=== PATIENT | female | born 1950 | race Caucasian/White ===

== ENCOUNTER 2017-06-18 20:00 | Inpatient (IN) | payer OTHER ==
[~2017-06-18] VITALS: Ht 152.4 cm; Wt 72.6 kg
[2017-06-18 20:52] VITALS: BP 174/78
[2017-06-18] MEDS ORDERED: cloNIDine 0.1 MG TAB PO PRN (21:50)
[2017-06-18] MEDS ORDERED: HYDROcodone/APAP 5/325 MG 1 TAB TAB PO PRN (21:50)
[2017-06-18] MEDS ORDERED: ONDANSETRON 4 MG/2 ML VIAL IVP PRN (21:50)
[2017-06-18] MEDS ORDERED: DEXTROSE 50% 50 ML SYR IVP PRN (21:50)
[2017-06-18] MEDS ORDERED: ACETAMINOPHEN 325 MG TAB PO PRN (21:50)
[2017-06-18] MEDS: DEXT 5% / NACL 0.45% 1,000 ML IV SCH (23:27)
[2017-06-18] MEDS: METOPROLOL 25 MG TAB PO SCH (23:27)
[2017-06-18] MEDS: MORPHINE SULFATE 2 MG/ML SYR IVP PRN (23:28)
[2017-06-18] MEDS: BLOOD GLUCOSE MONITORING 1 DEV DEV FS SCH (23:28)
[2017-06-18] MEDS: INSULIN LISPRO SLIDING SCALE 100 UNITS/ML VIAL SUBQ PRN (23:29)
[2017-06-18] MEDS ORDERED: METOPROLOL 25 MG TAB ONE (23:31)
[2017-06-18] MEDS ORDERED: LEVOFLOXACIN 500 MG/D5W PREMIX 100 ML IV SCH (23:45)
[2017-06-19] VITALS: BP 179/83
[2017-06-19] MEDS: metroNIDAZOLE 500 MG/NS PREMIX 100 ML IV SCH ×4 (00:01→20:41)
[2017-06-19] MEDS: OXYBUTYNIN 5 MG TAB PO SCH ×3 (00:05→20:47)
[2017-06-19] MEDS ORDERED: metroNIDAZOLE 500 MG/NS PREMIX 100 ML IV ONE (00:08)
[2017-06-19] MEDS ORDERED: LEVOFLOXACIN 500 MG/D5W PREMIX 100 ML IV ONE (00:08)
[2017-06-19] MEDS ORDERED: PNEUMOCOCCAL VACCINE 23 MCG/0.5 ML VIAL IMVAC PRN (01:00)
[2017-06-19 04:00] VITALS: BP 131/67
[2017-06-19] MEDS: BLOOD GLUCOSE MONITORING 1 DEV DEV FS SCH ×4 (05:12→18:23)
[2017-06-19 06:14] LABS: HEMOGLOBIN 11.9 g/dL (12.0-16.0); MEAN CORPUSCULAR HEMOGLOBIN 32 pg (27-31); MEAN CORPUSCULAR HGB CONC 34 g/dL (33-37); MEAN CORPUSCULAR VOLUME 95 fL (80-94); PLATELET COUNT (AUTO) 253 K/uL (140-450); RED BLOOD CELL COUNT(AUTO) 3.68 MIL/uL (4.20-5.40); RED CELL DISTRIBUTION WIDTH 12.9 % (11.6-13.7)
[2017-06-19 06:18] LABS: ANION GAP 11.9 (8-16); CARBON DIOXIDE 26.5 mmol/L (21-32); CREATININE 0.6 mg/dL (0.6-1.3); POTASSIUM 3.4 mmol/L (3.5-5.1)
[2017-06-19] MEDS: MORPHINE SULFATE 2 MG/ML SYR IVP PRN ×2 (06:32→20:43)
[2017-06-19 07:11] LABS: EOSINOPHILS % (MANUAL) 1 % (0-4); LYMPHOCYTES % (MANUAL) 9 % (20-46); MONOCYTES % (MANUAL) 6 % (5-12)
[2017-06-19 07:51] VITALS: BP 128/80
[2017-06-19] MEDS ORDERED: POTASSIUM CHLORIDE 10 MEQ TABER PO SCH (08:20)
[2017-06-19] MEDS: LORATADINE 10 MG TAB PO SCH (08:40)
[2017-06-19] MEDS: METOPROLOL 25 MG TAB PO SCH ×2 (08:41→20:47)
[2017-06-19] MEDS: LISINOPRIL 20 MG TAB PO SCH (08:41)
[2017-06-19 12:00] VITALS: BP 123/58
[2017-06-19] MEDS: DEXT 5% / NACL 0.45% 1,000 ML IV SCH (13:27)
[2017-06-19 16:00] VITALS: BP 142/70
[2017-06-19 20:00] VITALS: BP 142/67
[2017-06-19] MEDS: POLYETHYLENE GLYCOL 17 GM/PKT PO SCH (20:48)
[2017-06-20] VITALS: BP 137/76
[2017-06-20] MEDS: LEVOFLOXACIN 250 MG/D5 PREMIX 50 ML IV SCH (01:20)
[2017-06-20] MEDS: DEXT 5% / NACL 0.45% 1,000 ML IV SCH ×3 (01:21→22:44)
[2017-06-20 04:00] VITALS: BP 139/65
[2017-06-20] MEDS: metroNIDAZOLE 500 MG/NS PREMIX 100 ML IV SCH ×3 (05:19→20:19)
[2017-06-20 06:13] LABS: BASOPHILS # (AUTO) 0.1 K/uL (0.00-0.22); BASOPHILS % (AUTO) 0.6 % (0.0-2.0); EOSINOPHILS # (AUTO) 0.3 K/uL (0-0.4); EOSINOPHILS % (AUTO) 1.8 % (0.0-4.0); HEMATOCRIT 34.4 % (36-48); HEMOGLOBIN 11.6 g/dL (12.0-16.0); LYMPHOCYTES # (AUTO) 2.2 K/uL (2.5-16.5); LYMPHOCYTES % (AUTO) 15.4 % (20.5-51.1); MEAN CORPUSCULAR HEMOGLOBIN 32 pg (27-31); MEAN CORPUSCULAR HGB CONC 34 g/dL (33-37); MEAN CORPUSCULAR VOLUME 95 fL (80-94); MONOCYTES # (AUTO) 0.9 K/uL (0.8-1.0); MONOCYTES % (AUTO) 6.5 % (1.7-9.3); NEUTROPHILS # (AUTO) 10.6 K/uL (1.8-7.7); NEUTROPHILS % (AUTO) 75.7 % (42.2-75.2); PLATELET COUNT (AUTO) 252 K/uL (140-450); RED BLOOD CELL COUNT(AUTO) 3.63 MIL/uL (4.20-5.40); WHITE BLOOD COUNT (AUTO) 14.1 K/uL (4.8-10.8)
[2017-06-20] MEDS: BLOOD GLUCOSE MONITORING 1 DEV DEV FS SCH ×4 (06:55→17:39)
[2017-06-20 06:56] LABS: ANION GAP 9.7 (8-16); CARBON DIOXIDE 27.1 mmol/L (21-32); CREATININE 0.5 mg/dL (0.6-1.3); POTASSIUM 3.8 mmol/L (3.5-5.1); TOTAL BILIRUBIN 0.3 mg/dL (0.0-1.0)
[2017-06-20 08:35] VITALS: BP 131/67
[2017-06-20] MEDS: METOPROLOL 25 MG TAB PO SCH ×2 (08:56→20:18)
[2017-06-20] MEDS: OXYBUTYNIN 5 MG TAB PO SCH ×2 (08:56→20:18)
[2017-06-20] MEDS: LISINOPRIL 20 MG TAB PO SCH (08:56)
[2017-06-20] MEDS: POLYETHYLENE GLYCOL 17 GM/PKT PO SCH ×2 (08:57→20:18)
[2017-06-20] MEDS ORDERED: metroNIDAZOLE 250 MG TAB PO SCH (09:00)
[2017-06-20] MEDS: LORATADINE 10 MG TAB PO SCH (09:00)
[2017-06-20] MEDS: ENOXAPARIN 40 MG/0.4 ML SYR SUBQ SCH (09:05)
[2017-06-20 12:00] VITALS: BP 138/74
[2017-06-20] MEDS: INSULIN LISPRO SLIDING SCALE 100 UNITS/ML VIAL SUBQ PRN (12:51)
[2017-06-20 16:00] VITALS: BP 144/66
[2017-06-20] MEDS ORDERED: BOWEL EVACUANT DRINK 4,000 ML PDS PO SCH (19:00)
[2017-06-20 20:00] VITALS: BP 146/73
[2017-06-21] VITALS: BP 147/73
[2017-06-21] MEDS: LEVOFLOXACIN 250 MG/D5 PREMIX 50 ML IV SCH (00:10)
[2017-06-21] MEDS: BLOOD GLUCOSE MONITORING 1 DEV DEV FS SCH ×3 (00:35→11:39)
[2017-06-21] MEDS: metroNIDAZOLE 500 MG/NS PREMIX 100 ML IV SCH ×2 (04:59→12:04)
[2017-06-21 06:31] LABS: BASOPHILS # (AUTO) 0.2 K/uL (0.00-0.22); BASOPHILS % (AUTO) 2.3 % (0.0-2.0); EOSINOPHILS # (AUTO) 0.3 K/uL (0-0.4); EOSINOPHILS % (AUTO) 2.5 % (0.0-4.0); HEMATOCRIT 32.8 % (36-48); LYMPHOCYTES # (AUTO) 2.4 K/uL (2.5-16.5); LYMPHOCYTES % (AUTO) 23.6 % (20.5-51.1); MEAN CORPUSCULAR HEMOGLOBIN 32 pg (27-31); MEAN CORPUSCULAR HGB CONC 33 g/dL (33-37); MEAN CORPUSCULAR VOLUME 96 fL (80-94); MONOCYTES # (AUTO) 0.8 K/uL (0.8-1.0); MONOCYTES % (AUTO) 7.8 % (1.7-9.3); NEUTROPHILS # (AUTO) 6.6 K/uL (1.8-7.7); NEUTROPHILS % (AUTO) 63.8 % (42.2-75.2); PLATELET COUNT (AUTO) 290 K/uL (140-450); RED BLOOD CELL COUNT(AUTO) 3.42 MIL/uL (4.20-5.40); RED CELL DISTRIBUTION WIDTH 12.8 % (11.6-13.7); WHITE BLOOD COUNT (AUTO) 10.3 K/uL (4.8-10.8)
[2017-06-21 07:52] VITALS: BP 125/69
[2017-06-21] MEDS: ENOXAPARIN 40 MG/0.4 ML SYR SUBQ SCH (08:47)
[2017-06-21] MEDS: LORATADINE 10 MG TAB PO SCH (08:48)
[2017-06-21] MEDS: POLYETHYLENE GLYCOL 17 GM/PKT PO SCH (08:48)
[2017-06-21] MEDS: OXYBUTYNIN 5 MG TAB PO SCH (08:48)
[2017-06-21] MEDS: LISINOPRIL 20 MG TAB PO SCH (08:48)
[2017-06-21] MEDS ORDERED: CIPR500T4 PO (09:40)
[2017-06-21] MEDS ORDERED: METR250T2 PO (09:41)
[2017-06-21] MEDS ORDERED: ACET-2619 PO (09:42)
[2017-06-21 10:00] VITALS: BP 151/72
[2017-06-21] MEDS: METOPROLOL 25 MG TAB PO SCH (10:15)
[2017-06-21] MEDS ORDERED: diphenhydrAMINE 50 MG/ML VIAL ONE (10:37)
[2017-06-21] MEDS ORDERED: fentaNYL 0.05 MG/ML VIAL ONE (10:37)
[2017-06-21] MEDS ORDERED: MIDAZOLAM 2 MG/2 ML VIAL ONE (10:37)
[2017-06-21] MEDS ORDERED: PNEUMOCOCCAL VACCINE 23 MCG/0.5 ML VIAL IMVAC SCH (13:00)
[2017-06-21 15:51] VITALS: BP 148/65
== END 2017-06-21 16:30 | disposition home or self-care (01) | DRG 720 ==
LOC: MTU 20:50
PROVIDERS: ADMIT Hospitalist; ATTEND Hospitalist
PROC: 0DBN8ZX Excision of Sigmoid Colon, Via Natural or Artificial Opening Endoscopic, Diagnostic (ICD-10-PCS; principal; 2017-06-21 10:40)
DX: A41.9 Sepsis, unspecified organism (principal); E44.1 Mild protein-calorie malnutrition; I10 Essential (primary) hypertension; K50.10 Crohn's disease of large intestine without complications; E83.51 Hypocalcemia; K64.8 Other hemorrhoids; E87.6 Hypokalemia; E11.9 Type 2 diabetes mellitus without complications; E78.5 Hyperlipidemia, unspecified; K57.90 Diverticulosis of intestine, part unspecified, without perforation or abscess without bleeding; K52.9 Noninfective gastroenteritis and colitis, unspecified; Z68.31 Body mass index [BMI] 31.0-31.9, adult; Z90.49 Acquired absence of other specified parts of digestive tract
CPT/HCPCS: 36415; 80048; 80053; 82948; 85025; 87070; 87081; 90732; J1200; J1650; J1815; J1956; J2250; J2270; J3010; J3490; J7030; J7042